=== PATIENT | female | born 1945 | race African-American/Black ===

== ENCOUNTER 2017-01-06 21:14 | Inpatient (IN) | payer MEDICARE, MEDICAID ==
[~2017-01-06] VITALS: Ht 188 cm; Wt 83.9 kg
[~2017-01-06 21:14] MED LIST: GLIP10TA11 PO
[2017-01-06 21:30] VITALS: BP 114/69
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
[2017-01-06] MEDS ORDERED: MAG HYDROX/AL HYDROX/SIMETH 30 ML UDC PO PRN (22:00)
[2017-01-06] MEDS ORDERED: MAGNESIUM HYDROXIDE 30 ML UDC PO PRN (22:00)
[2017-01-06] MEDS ORDERED: ACETAMINOPHEN 325 MG TABLET PO PRN (22:00)
[2017-01-06] MEDS ORDERED: NICOTINE PATCH (21MG) 21 MG PATCH.TD24 TD SCH (23:00)
[2017-01-06] MEDS ORDERED: DEXTROSE 50%-WATER 50 ML DISP.SYRIN IV PRN (23:00)
--- NOTE | 2017-01-06 23:18 | NUR ---
GPS RN NOTE, PATIENT REFUSED NICODERM 21MG PATCH TD DAILY AT THIS TIME. OFFERED NICODERM PATCH THREE TIMES AND STILL PATIENT REFUSED STATING, " GET THE HELL OUT OF HEAR I DON'T WON'T ANYTHING". EDUCATED THE RISKS AND BENEFITS OF USING AND REFUSING AFOREMENTIONED MEDICATION. WILL CONTINUE TO MONITOR THIS PATIENT.
[2017-01-07] MEDS: BLOOD SUGAR DIAGNOSTIC 1 EACH STRIP VI SCH ×4 (07:57→22:00)
--- NOTE | 2017-01-07 08:00 | NUR ---
GPS/RN PATIENT BS 143, REFUSED INSULIN 2 UNITS X 3, EXPLAINED RISKS AND BENEFITS, WILL CONTINUE TO ENCOURAGE TO ALLOW STIFF TO CHECK BS LEVELS AC/HS
--- NOTE | 2017-01-07 08:00 | NUR ---
GPS/RN PATIENT REFUSED A.M. MEDICATION, GLIPIZIDE 10MG, NICOTINE PATCH 21 MG X 3, EXPLAINED RISKS AND BENEFITS, WILL CONTINUE TO ENCOURAGE TO COMPLY WITH MD REGIMEN.
[2017-01-07] MEDS: clonazePAM 0.5 MG TABLET PO PRN ×2 (08:26→17:54)
--- NOTE | 2017-01-07 08:26 | NUR ---
GPA/RN PATIENT NOTED WITH ACUTE AGITATION, AGGRESSIVE, ANXIOUS AND AGITATED, ADMINISTERED KLONOPIN 0.5 MG ORDERED, WILL CONTINUE TO MONITOR.
--- NOTE | 2017-01-07 08:26 | NUR ---
Pt. is highly agitated, aggressive, throwing trays and combative to staffs. Pt. escorted to her room and redirected and offered with Shobha fabian. Called Dr. Ricardo and awaiting for the call back.
[2017-01-07] MEDS: NICOTINE PATCH (21MG) 21 MG PATCH.TD24 TD SCH (08:28)
[2017-01-07] MEDS: glipiZIDE 10 MG TABLET PO SCH ×2 (08:28→17:54)
--- NOTE | 2017-01-07 12:00 | NUR ---
GPS/RN PATIENT ADAMANTLY REFUSED BS CHECK X 3, EXPLAINED RISKS AND BENEFITS, WILL CONTINUE TO ENCOURAGE TO ALLOW STAFF MONITOR BS AC/S AND TO COMPLY WITH MD REGIMEN.
[2017-01-07 16:00] VITALS: BP 133/62
[2017-01-07] MEDS: DIVALPROEX SODIUM 500 MG TABLET.DR PO SCH ×2 (17:54→21:00)
--- NOTE | 2017-01-07 17:54 | NUR ---
GPA/RN PATIENT NOTED WITH ACUTE AGITATION, AGGRESSIVE, ANXIOUS AND AGITATED, ADMINISTERED KLONOPIN 0.5 MG ORDERED, WILL CONTINUE TO MONITOR.
[2017-01-07 20:00] VITALS: BP 113/51
[2017-01-07] MEDS: ARIPIPRAZOLE 5 MG TABLET PO SCH (22:00)
[2017-01-08] MEDS: BLOOD SUGAR DIAGNOSTIC 1 EACH STRIP VI SCH ×4 (07:30→21:25)
[2017-01-08] MEDS: DIVALPROEX SODIUM 500 MG TABLET.DR PO SCH ×3 (09:00→20:02)
[2017-01-08] MEDS: glipiZIDE 10 MG TABLET PO SCH ×3 (09:00→17:00)
[2017-01-08] MEDS: NICOTINE PATCH (21MG) 21 MG PATCH.TD24 TD SCH (09:00)
--- NOTE | 2017-01-08 11:02 | NUR ---
Initial Discharge Note: Per hold, patient is homeless. Patient will need placement. packing floor worker attempted to contact patient's daughter Carmen . However she was unavailable. packing floor worker left her a voicemail with her direct contact information. packing floor worker attempted to contact patient's daughter Valerie Paul , however it appeared to be a non-working number. packing floor worker will help form a safe and proper discharge.
--- NOTE | 2017-01-08 11:45 | NUR ---
GPS/RN PT AGREED TO TAKE 0900 MEDS AT THIS TIME.
[2017-01-08 12:02] LABS: BASOPHILS % (AUTO) 0.3 % (0.0-2.0); EOSINOPHILS # (AUTO) 0.2 /CMM (0.0-0.7); EOSINOPHILS % (AUTO) 2.2 % (0.0-6.0); HEMATOCRIT 37 % (33-45); HEMOGLOBIN 12.6 g/dL (11.5-14.8); LYMPHOCYTES # (AUTO) 3.9 /CMM (0.8-4.8); LYMPHOCYTES % (AUTO) 49.9 % (20.0-44.0); MEAN CORPUSCULAR HEMOGLOBIN 30 PG (26.0-33.0); MEAN CORPUSCULAR HGB CONC 34 g/dl (31.0-36.0); MEAN CORPUSCULAR VOLUME 89 fL (82-100); MONOCYTES # (AUTO) 0.8 /CMM (0.1-1.30); MONOCYTES % (AUTO) 10.5 % (2.0-12.0); NEUTROPHILS # (AUTO) 2.9 /CMM (1.8-8.9); NEUTROPHILS % (AUTO) 37.1 % (43.0-81.0); PLATELET COUNT (AUTO) 215 /CMM (150-450); RDW COEFFICIENT OF VARIATION 13.2 (11.5-15.0); RED BLOOD CELL COUNT(AUTO) 4.19 MIL/uL (4.0-5.2); WHITE BLOOD COUNT (AUTO) 7.8 K/uL (4.3-11.0)
[2017-01-08 12:17] LABS: CALCIUM, SERUM 9.1 mg/dL (8.5-10.1); CREATININE 0.8 mg/dL (0.6-1.3); POTASSIUM 3.9 mmol/L (3.5-5.1)
--- NOTE | 2017-01-08 19:20 | NUR ---
GPS/RN PT REFUSED ACCUCHECK @5953 OFFERED X3
[2017-01-08 20:00] VITALS: BP 119/52
[2017-01-08] MEDS: ARIPIPRAZOLE 5 MG TABLET PO SCH (21:04)
[2017-01-09] MEDS: BLOOD SUGAR DIAGNOSTIC 1 EACH STRIP VI SCH ×4 (07:30→22:47)
[2017-01-09] MEDS: NICOTINE PATCH (21MG) 21 MG PATCH.TD24 TD SCH (09:00)
[2017-01-09] MEDS: DIVALPROEX SODIUM 500 MG TABLET.DR PO SCH ×2 (09:00→22:47)
[2017-01-09] MEDS: glipiZIDE 10 MG TABLET PO SCH ×2 (09:00→17:00)
--- NOTE | 2017-01-09 09:07 | NUR ---
GPS/RN PT REFUSED ACCUCHECK IN AM , REFUSED NICOTINE PATCH. PT STATES : " I WANT CIGARETTE AND THE BEER.."
[2017-01-09 20:00] VITALS: BP 138/60
--- NOTE | 2017-01-09 21:00 | NUR ---
RN NOTES PATIENT RESTLESS, WANDERING THE HALLWAY, SCREAMING PROFANITIES TO STAFF, REDIRECTABLE, GIVEN FOOD. WILL CONTINUE TO MONITOR.
[2017-01-09] MEDS: ARIPIPRAZOLE 5 MG TABLET PO SCH (22:47)
[2017-01-09] MEDS: *INSULIN REGULAR(HUMULIN R)HUM 100 UNIT/ML VIAL SQ PRN (23:00)
--- NOTE | 2017-01-09 23:01 | NUR ---
RN NOTES INSULIN HELD, BG 108 MG/DL
[2017-01-09] MEDS: TEMAZEPAM 7.5 MG CAPSULE PO PRN (23:51)
--- NOTE | 2017-01-10 07:01 | NUR ---
RN NOTES PATIENT IS ALERT AND AWAKE, PACING THE HALLWAY, CONFUSED, TALKING TO SELF, EASILY IRRITATED, ABLE TO VERBALIZE NEEDS, REFUSED BLOOD DRAW.
[2017-01-10] MEDS: INSULIN REGULAR, HUMAN 100 UNIT/ML 3 ML VIAL SQ PRN (08:36)
[2017-01-10] MEDS: DIVALPROEX SODIUM 500 MG TABLET.DR PO SCH ×2 (08:37→21:00)
[2017-01-10] MEDS: BLOOD SUGAR DIAGNOSTIC 1 EACH STRIP VI SCH ×4 (08:37→22:00)
[2017-01-10] MEDS: glipiZIDE 10 MG TABLET PO SCH ×2 (08:40→17:11)
[2017-01-10] MEDS: NICOTINE PATCH (21MG) 21 MG PATCH.TD24 TD SCH (08:44)
[2017-01-10 19:50] VITALS: BP 144/84
[2017-01-10] MEDS: ARIPIPRAZOLE 5 MG TABLET PO SCH (22:00)
--- NOTE | 2017-01-11 06:05 | NUR ---
GPS RN: PATIENT REFUSED TO HAVE HER WEEKLY SKIN ASSESSMENT PICTURES DONE. PER PATIENT "ARE YOU NORA?" EXPLAINED TO PATIENT THE PURPOSE FOR THE PICTURE BUT SHE KEPT REFUSING. WILL ENDORSE TO DAY SHIFT NURSE.
[2017-01-11] MEDS: BLOOD SUGAR DIAGNOSTIC 1 EACH STRIP VI SCH ×4 (07:40→21:47)
[2017-01-11] MEDS: INSULIN REGULAR, HUMAN 100 UNIT/ML 3 ML VIAL SQ PRN (07:41)
[2017-01-11 08:04] VITALS: BP 132/62
[2017-01-11] MEDS: DIVALPROEX SODIUM 500 MG TABLET.DR PO SCH ×2 (08:39→21:47)
[2017-01-11] MEDS: glipiZIDE 10 MG TABLET PO SCH ×2 (08:39→16:32)
[2017-01-11] MEDS: NICOTINE PATCH (21MG) 21 MG PATCH.TD24 TD SCH (08:41)
[2017-01-11] MEDS ORDERED: OLANZAPINE 10 MG VIAL IM STA (11:33)
[2017-01-11] MEDS ORDERED: LORAZEPAM INJ 2 MG/ML VIAL IM STA (11:33)
--- NOTE | 2017-01-11 11:50 | NUR ---
GPS RN NOTE: PT IN THE DINNING ROOM PACING IN THE ROOM RESTLESS , AGITATED YELLING AND SCREAMING ,PT AGGRESSIVE TO STAFF UNABLE TO CONTROL BEHAVIOR. DR CRUZ NOTIFIED WITH ORDERS OF ATIVAN 1 MG IM ONCE,ZYPREXA 5 MG IM ONCE, ORDER PLACED AND CARED OUT WILL CONTINUE MONITORING
[2017-01-11 12:30] VITALS: BP 141/59
--- NOTE | 2017-01-11 13:15 | NUR ---
television maintenance worker attempted to contact patient's daughter Carmen Rene ([phone]) however, she was unavailable. television maintenance worker left her a detailed message with direct contact information. television maintenance worker will follow-up.
[2017-01-11 15:34] VITALS: BP 112/52
[2017-01-11 19:40] VITALS: BP 100/51
[2017-01-11] MEDS: ARIPIPRAZOLE 5 MG TABLET PO SCH (21:47)
--- NOTE | 2017-01-11 22:00 | NUR ---
GPS RN: PATIENT'S BLOOD SUGAR READING IS 189MG/DL. PATIENT REFUSED TO HAVE THE COVERAGE BE GIVEN. ADVISED PATIENT THE NEED TO HAVE THE COVERAGE. PATIENT STILL REFUSED. WILL CONTINUE TO MONITOR PATIENT. WILL ENDORSE TO DAY SHIFT NURSE.
[2017-01-12 08:18] VITALS: BP 141/81
[2017-01-12] MEDS: BLOOD SUGAR DIAGNOSTIC 1 EACH STRIP VI SCH ×4 (08:53→22:27)
[2017-01-12] MEDS: INSULIN REGULAR, HUMAN 100 UNIT/ML 3 ML VIAL SQ PRN (08:55)
[2017-01-12] MEDS: NICOTINE PATCH (21MG) 21 MG PATCH.TD24 TD SCH (09:00)
[2017-01-12] MEDS: DIVALPROEX SODIUM 500 MG TABLET.DR PO SCH ×2 (09:13→20:51)
[2017-01-12] MEDS: glipiZIDE 10 MG TABLET PO SCH ×2 (09:13→17:22)
[2017-01-12] MEDS: ARIPIPRAZOLE 5 MG TABLET PO SCH ×2 (09:13→20:51)
[2017-01-12] MEDS: clonazePAM 0.5 MG TABLET PO PRN (09:19)
--- NOTE | 2017-01-12 09:19 | NUR ---
RN NOTE:PATIENT AGITATED AND MEDICATED WITH KLONOPIN 0.5 MG.
[2017-01-12 15:59] VITALS: BP 140/59
--- NOTE | 2017-01-12 16:10 | NUR ---
SW spoke to patient regarding placement. Patient stated that she did not have a place to live. SW asked patient if she wanted placement, patient responded, "I want an [place] [facility]." SW asked patient if she wanted her to find her a board & Care, Patient responded "no, I want an [place] [facility]." Patient stated that she receives SSI 1,200/month. SW asked patient again if she wanted placement, patient responded, "no, I want an [place] [facility]." embroidery worker will follow-up.
[2017-01-12 20:00] VITALS: BP 131/65
[2017-01-12 20:25] VITALS: BP 131/65
[2017-01-12] MEDS: *INSULIN REGULAR(HUMULIN R)HUM 100 UNIT/ML VIAL SQ PRN (22:27)
--- NOTE | 2017-01-12 22:28 | NUR ---
RN NOTES: PATIENT ALLOWED FOR BLOOD SUGAR TO BE CHECKED. BS: 159 MG/DL. HOWEVER, PATIENT REFUSED TO HAVE INSULIN COVERAGE FOR TONIGHT, SAYING, "I WILL ONLY HAVE IT IF IT IS 200 OR OVER."
[2017-01-13] MEDS: BLOOD SUGAR DIAGNOSTIC 1 EACH STRIP VI SCH ×4 (07:30→21:40)
[2017-01-13 08:26] VITALS: BP 130/80
[2017-01-13] MEDS: ARIPIPRAZOLE 5 MG TABLET PO SCH ×2 (08:57→21:35)
[2017-01-13] MEDS: DIVALPROEX SODIUM 500 MG TABLET.DR PO SCH ×2 (08:57→21:33)
[2017-01-13] MEDS: glipiZIDE 10 MG TABLET PO SCH ×2 (08:57→17:00)
[2017-01-13] MEDS: NICOTINE PATCH (21MG) 21 MG PATCH.TD24 TD SCH (09:00)
[2017-01-13] MEDS: clonazePAM 0.5 MG TABLET PO PRN (10:39)
--- NOTE | 2017-01-13 10:40 | NUR ---
RN NOTE:PATIENT AGITATED AND MEDICATED WITH KLONOPIN 0.5 MG.
[2017-01-13] MEDS: INSULIN REGULAR, HUMAN 100 UNIT/ML 3 ML VIAL SQ PRN ×2 (10:55→13:19)
[2017-01-13 16:00] VITALS: BP 153/74
[2017-01-13 20:06] VITALS: BP 142/78
[2017-01-13] MEDS: TEMAZEPAM 7.5 MG CAPSULE PO PRN (21:33)
--- NOTE | 2017-01-13 22:00 | NUR ---
RN NOTES REFUSED TO CHECKED BS PT SAYS " SORRY, BUT I REFUSED THAT". RISKA ND BENEFITS EXPLAINED AND PT STARTED TO TALK CONTINUOUSLY, DISORGANIZED. NO S/S/ OF HYPO OR HYPERGLYCEMIA SHOWS. WILL CONTINUE TO MONITOR.
--- NOTE | 2017-01-13 22:46 | NUR ---
RN NOTES COMPLIANT WITH DUE MEDICINE BUT PT REFUSED TO TAKE SLEEPING PILL, ENCOURAGED AND TRIED 3X INEFFECTIVE RISK AND BENEFITS EXPLAINED. PT STILL WITH EPISODE OF KEEP COMING BACK AND FORTH TIME TO TIME IN NURSING STATION.
[2017-01-14] MEDS: BLOOD SUGAR DIAGNOSTIC 1 EACH STRIP VI SCH ×4 (07:30→21:20)
--- NOTE | 2017-01-14 07:30 | NUR ---
GPS/RN PATIENT REFUSED BS CHECK X 3, EXPLAINED RISKS AND BENEFITS, CONTINUES TO REFUSE, WILL CONTINUE TO ENCOURAGE TO COMPLY WITH MD REGIMEN.
[2017-01-14 08:55] VITALS: BP 117/69
[2017-01-14] MEDS: NICOTINE PATCH (21MG) 21 MG PATCH.TD24 TD SCH (09:00)
[2017-01-14] MEDS: ARIPIPRAZOLE 5 MG TABLET PO SCH ×2 (09:00→21:20)
[2017-01-14] MEDS: DIVALPROEX SODIUM 500 MG TABLET.DR PO SCH ×2 (09:01→21:19)
[2017-01-14] MEDS: glipiZIDE 10 MG TABLET PO SCH ×2 (09:01→16:24)
[2017-01-14] MEDS: clonazePAM 0.5 MG TABLET PO PRN ×2 (09:05→15:26)
--- NOTE | 2017-01-14 09:10 | NUR ---
GPA/RN PATIENT NOTED WITH ACUTE AGITATION, AGGRESSIVE, ANXIOUS AND AGITATED, ADMINISTERED KLONOPIN 0.5 MG ORDERED, WILL CONTINUE TO MONITOR.
--- NOTE | 2017-01-14 12:00 | NUR ---
GPS/RN PATIENT REFUSED BS CHECK X 3, EXPLAINED RISKS AND BENEFITS, CONTINUES TO REFUSE, WILL CONTINUE TO ENCOURAGE TO COMPLY WITH MD REGIMEN.
--- NOTE | 2017-01-14 15:26 | NUR ---
GPA/RN PATIENT AGITATED, VERBALLY AGGRESSIVE, AND ANXIOUS, ADMINISTERED KLONOPIN 0.5 MG ORDERED, WILL CONTINUE TO MONITOR.
[2017-01-14 16:28] VITALS: BP 145/80
--- NOTE | 2017-01-14 17:19 | NUR ---
GPS/RN PATIENT REFUSED BS CHECK X 3, EXPLAINED RISKS AND BENEFITS, CONTINUES TO REFUSE, WILL CONTINUE TO ENCOURAGE TO COMPLY WITH MD REGIMEN.
[2017-01-14] MEDS: *INSULIN REGULAR(HUMULIN R)HUM 100 UNIT/ML VIAL SQ PRN (21:21)
[2017-01-15] MEDS: BLOOD SUGAR DIAGNOSTIC 1 EACH STRIP VI SCH ×4 (07:55→21:42)
[2017-01-15] MEDS: INSULIN REGULAR, HUMAN 100 UNIT/ML 3 ML VIAL SQ PRN ×2 (07:57→17:51)
[2017-01-15 08:00] VITALS: BP 105/76
[2017-01-15] MEDS: ARIPIPRAZOLE 5 MG TABLET PO SCH (08:22)
[2017-01-15] MEDS: glipiZIDE 10 MG TABLET PO SCH ×2 (08:22→16:24)
[2017-01-15] MEDS: DIVALPROEX SODIUM 500 MG TABLET.DR PO SCH ×2 (08:22→21:42)
[2017-01-15] MEDS: NICOTINE PATCH (21MG) 21 MG PATCH.TD24 TD SCH ×2 (08:22→08:25)
[2017-01-15] MEDS ORDERED: OLANZAPINE 10 MG VIAL IM ONE (11:30)
[2017-01-15] MEDS ORDERED: LORAZEPAM INJ 2 MG/ML VIAL IM ONE (11:30)
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
[2017-01-15 16:00] VITALS: BP 122/63
[2017-01-15 20:00] VITALS: BP 124/64
--- NOTE | 2017-01-15 21:40 | NUR ---
GPS-RN PT REFUSED BLOOD SUGAR TO BE CHECK. EXPLAIN THE RISK AND BENEFITS. PT STILL REFUSED. WILL CONTINUE TO MONITOR FOR SAFETY.
[2017-01-15] MEDS: OLANZAPINE 5 MG/TAB.RAPDIS PO SCH (21:42)
[2017-01-16] MEDS: INSULIN REGULAR, HUMAN 100 UNIT/ML 3 ML VIAL SQ PRN ×3 (07:56→17:26)
[2017-01-16] MEDS: BLOOD SUGAR DIAGNOSTIC 1 EACH STRIP VI SCH ×4 (07:57→21:01)
[2017-01-16] MEDS: OLANZAPINE 5 MG/TAB.RAPDIS PO SCH ×3 (07:58→20:43)
[2017-01-16] MEDS: glipiZIDE 10 MG TABLET PO SCH ×2 (07:58→17:25)
[2017-01-16] MEDS: DIVALPROEX SODIUM 500 MG TABLET.DR PO SCH ×2 (07:58→20:43)
[2017-01-16 08:00] VITALS: BP 111/59
[2017-01-16] MEDS: NICOTINE PATCH (21MG) 21 MG PATCH.TD24 TD SCH (08:01)
[2017-01-16 09:31] LABS: BASOPHILS % (AUTO) 0.3 % (0.0-2.0); EOSINOPHILS # (AUTO) 0.1 /CMM (0.0-0.7); EOSINOPHILS % (AUTO) 0.8 % (0.0-6.0); HEMATOCRIT 36 % (33-45); HEMOGLOBIN 11.9 g/dL (11.5-14.8); LYMPHOCYTES # (AUTO) 3.9 /CMM (0.8-4.8); LYMPHOCYTES % (AUTO) 37.3 % (20.0-44.0); MEAN CORPUSCULAR HEMOGLOBIN 30 PG (26.0-33.0); MEAN CORPUSCULAR HGB CONC 33 g/dl (31.0-36.0); MEAN CORPUSCULAR VOLUME 90 fL (82-100); MONOCYTES # (AUTO) 0.9 /CMM (0.1-1.30); MONOCYTES % (AUTO) 8.6 % (2.0-12.0); NEUTROPHILS # (AUTO) 5.5 /CMM (1.8-8.9); PLATELET COUNT (AUTO) 257 /CMM (150-450); RDW COEFFICIENT OF VARIATION 13.2 (11.5-15.0); RED BLOOD CELL COUNT(AUTO) 4.02 MIL/uL (4.0-5.2); WHITE BLOOD COUNT (AUTO) 10.4 K/uL (4.3-11.0)
[2017-01-16 09:46] LABS: CALCIUM, SERUM 9.3 mg/dL (8.5-10.1); CREATININE 0.8 mg/dL (0.6-1.3); POTASSIUM 4.5 mmol/L (3.5-5.1)
[2017-01-16 16:00] VITALS: BP 123/69
[2017-01-16 20:00] VITALS: BP 130/56
[2017-01-16] MEDS: *INSULIN REGULAR(HUMULIN R)HUM 100 UNIT/ML VIAL SQ PRN (21:02)
[2017-01-17] MEDS: DIVALPROEX SODIUM 500 MG TABLET.DR PO SCH ×2 (08:15→21:40)
[2017-01-17] MEDS: glipiZIDE 10 MG TABLET PO SCH ×2 (08:16→16:28)
[2017-01-17] MEDS: BLOOD SUGAR DIAGNOSTIC 1 EACH STRIP VI SCH ×4 (08:16→21:41)
[2017-01-17] MEDS: OLANZAPINE 5 MG/TAB.RAPDIS PO SCH ×3 (08:16→21:40)
[2017-01-17] MEDS: NICOTINE PATCH (21MG) 21 MG PATCH.TD24 TD SCH (08:16)
[2017-01-17] MEDS: INSULIN REGULAR, HUMAN 100 UNIT/ML 3 ML VIAL SQ PRN (08:41)
--- NOTE | 2017-01-17 08:41 | NUR ---
[id number]: BLOOD SUGAR IS 233 MG/DL AND GAVE 6 UNITS OF REGULAR INSULIN.
[2017-01-17 22:54] VITALS: BP 132/52
[2017-01-18] MEDS: BLOOD SUGAR DIAGNOSTIC 1 EACH STRIP VI SCH ×5 (07:30→22:00)
[2017-01-18 08:00] VITALS: BP 157/62
--- NOTE | 2017-01-18 08:11 | NUR ---
GPS RN NOTES PATIENT REFUSING ACCU CHECK STATES SHE KNOWS IT IS NOT TOO HIGH. PATIENT IS PLEASANT HOWEVER WILL NOT LISTEN TO INSTRUCTIONS AND EDUCATION
[2017-01-18] MEDS: DIVALPROEX SODIUM 500 MG TABLET.DR PO SCH ×2 (08:29→21:29)
[2017-01-18] MEDS: glipiZIDE 10 MG TABLET PO SCH ×2 (08:29→16:27)
--- NOTE | 2017-01-18 08:30 | NUR ---
GPS RN NOTES PATIENT REFUSED ZYPREXA AND NICODERM PATCH. WILL ATTEMPT AGAIN. EDUCATED PATIENT HOWEVER SHE IS PASSIVE AND BECOMING ANGRY.
[2017-01-18] MEDS: NICOTINE PATCH (21MG) 21 MG PATCH.TD24 TD SCH (09:00)
[2017-01-18] MEDS: OLANZAPINE 5 MG/TAB.RAPDIS PO SCH ×3 (09:07→21:30)
--- NOTE | 2017-01-18 15:52 | NUR ---
SW spoke to patient regarding placement. Patient agreed to go to a Board & Care. sheet metal worker helper will follow-up.
[2017-01-18 16:00] VITALS: BP 154/69
[2017-01-18 16:18] VITALS: BP 124/69
--- NOTE | 2017-01-18 16:22 | NUR ---
KILO faxed [facility] ([phone]). insemination worker will follow-up.
--- NOTE | 2017-01-18 16:24 | NUR ---
tangled yarn worker faxed initial referral packet to [facility] ([phone]). tangled yarn worker will follow-up.
[2017-01-18 20:01] VITALS: BP_SYST 116; BP_SYST 164; BP_DIAS 49
[2017-01-19] MEDS: BLOOD SUGAR DIAGNOSTIC 1 EACH STRIP VI SCH ×5 (00:35→21:43)
[2017-01-19] MEDS: *INSULIN REGULAR(HUMULIN R)HUM 100 UNIT/ML VIAL SQ PRN ×2 (00:39→21:52)
[2017-01-19] MEDS: INSULIN REGULAR, HUMAN 100 UNIT/ML 3 ML VIAL SQ PRN ×2 (07:46→12:16)
[2017-01-19] MEDS: NICOTINE PATCH (21MG) 21 MG PATCH.TD24 TD SCH (07:48)
[2017-01-19 08:00] VITALS: BP 142/91
[2017-01-19] MEDS: DIVALPROEX SODIUM 500 MG TABLET.DR PO SCH ×2 (08:00→21:42)
[2017-01-19] MEDS: glipiZIDE 10 MG TABLET PO SCH ×2 (08:00→17:18)
[2017-01-19] MEDS: OLANZAPINE 5 MG/TAB.RAPDIS PO SCH ×4 (08:01→22:00)
[2017-01-19] MEDS: clonazePAM 0.5 MG TABLET PO PRN ×2 (08:01→17:18)
--- NOTE | 2017-01-19 08:01 | NUR ---
RN NOTES ADMINISTERED KLONOPIN 0.5 MG PO PRN FOR ANXIETY, PARANOIA, YELLING, SCREAMING, VERBALLY ABUSIVE, V/S TAKEN 142/91, P-68, CONTINUED MONITORING.
--- NOTE | 2017-01-19 14:58 | NUR ---
Per Angela, from [place] ([phone]) she cannot accept the patient.
--- NOTE | 2017-01-19 14:59 | NUR ---
torpedo worker faxed initial review packet to [address] [place] [address] ( / ) torpedo worker will follow-up.
[2017-01-19 15:37] VITALS: BP 135/72
--- NOTE | 2017-01-19 17:18 | NUR ---
RN NOTES ADMINISTERED KLONOPIN 0.5 MG PO PRN, FOR ANXIETY,PARANOIA, IRRITABLE, VERBALLY ABUSIVE, V/S TAKEN BP -135/72, P-64, SAFETY PRECAUTION MAINTAINED ALL THE TIME. CONTINUED MONITORING.
[2017-01-19] MEDS: METFORMIN 500 MG TABLET PO SCH (17:43)
[2017-01-19 19:56] VITALS: BP 147/65
[2017-01-19] MEDS: ARIPIPRAZOLE 5 MG TABLET PO SCH (21:41)
[2017-01-20] MEDS: BLOOD SUGAR DIAGNOSTIC 1 EACH STRIP VI SCH ×4 (07:30→21:41)
--- NOTE | 2017-01-20 07:30 | NUR ---
GPS/RN PATIENT REFUSED BS CHECK X 3, EXPLAINED RISKS AND BENEFITS, CONTINUES TO REFUSE, WILL CONTINUE TO ENCOURAGE TO COMPLY WITH MD REGIMEN.
[2017-01-20] MEDS: OLANZAPINE 5 MG/TAB.RAPDIS PO SCH ×3 (08:26→21:36)
[2017-01-20] MEDS: DIVALPROEX SODIUM 500 MG TABLET.DR PO SCH ×2 (08:26→21:33)
[2017-01-20] MEDS: glipiZIDE 10 MG TABLET PO SCH ×2 (08:26→16:17)
[2017-01-20] MEDS: NICOTINE PATCH (21MG) 21 MG PATCH.TD24 TD SCH (08:26)
[2017-01-20] MEDS: METFORMIN 500 MG TABLET PO SCH ×2 (08:26→16:17)
[2017-01-20 10:12] LABS: CHOLESTEROL 167 mg/dL (<200); HDL CHOLESTEROL 66 mg/dL (40-60); LDL 83 mg/dL (0-99); TRIGLYCERIDES 132 mg/dL (30-150)
--- NOTE | 2017-01-20 12:00 | NUR ---
GPS/RN PATIENT REFUSED BS CHECK X 3, EXPLAINED RISKS AND BENEFITS, CONTINUES TO REFUSE, WILL CONTINUE TO ENCOURAGE TO COMPLY WITH MD REGIMEN.
--- NOTE | 2017-01-20 16:50 | NUR ---
GPS/RN PATIENT REFUSED BS CHECK X 3, STATED "I JUST ATE SOMETHING AND IT WILL BE HIGH", WILL CONTINUE TO ENCOURAGE TO ALLOW STAFF TO CHECK BS DURING SCHEDULED INTERVALS.
[2017-01-20 20:00] VITALS: BP 122/57
[2017-01-20] MEDS: ARIPIPRAZOLE 5 MG TABLET PO SCH (21:33)
--- NOTE | 2017-01-20 21:40 | NUR ---
GPS/BOILER/CHILLER OPERATOR NOTES: PT. REFUSED HS OLANZAPINE 10MG PO ORDERED. OFFERED 3X. EXPLAINED RISK AND BENEFITS. PT. STILL REFUSED.
[2017-01-21] MEDS: BLOOD SUGAR DIAGNOSTIC 1 EACH STRIP VI SCH ×4 (07:58→22:55)
[2017-01-21 08:00] VITALS: BP 122/54
[2017-01-21] MEDS: DIVALPROEX SODIUM 500 MG TABLET.DR PO SCH ×2 (08:18→20:48)
[2017-01-21] MEDS: glipiZIDE 10 MG TABLET PO SCH ×2 (08:18→16:13)
[2017-01-21] MEDS: METFORMIN 500 MG TABLET PO SCH ×2 (08:18→16:13)
--- NOTE | 2017-01-21 08:30 | NUR ---
GPS/RN BS 170, REFUSED 3 UNITS REGULAR INSULIN X3, EXPLAINED RISKS AND BENEFITS, CONTINUES TO REFUSE. STATED" NO, THAT'S NOT HIGH, I DON'T NEED IT"
[2017-01-21] MEDS: OLANZAPINE 5 MG/TAB.RAPDIS PO SCH ×2 (08:34→22:55)
[2017-01-21] MEDS: NICOTINE PATCH (21MG) 21 MG PATCH.TD24 TD SCH (08:35)
--- NOTE | 2017-01-21 12:00 | NUR ---
GPS/RN BS 108, NO COVERAGE GIVEN.
[2017-01-21 15:54] VITALS: BP 130/99
--- NOTE | 2017-01-21 17:30 | NUR ---
GPS/RN BS 110, NO COVERAGE GIVEN.
[2017-01-21 20:00] VITALS: BP 115/53
--- NOTE | 2017-01-21 21:40 | NUR ---
GPS/RN NOTE: ACCUCHECK 109 MG/DL, NO INSULIN DUE AT THIS TIME.
[2017-01-21] MEDS: ARIPIPRAZOLE 5 MG TABLET PO SCH (22:54)
[2017-01-22 08:00] VITALS: BP 108/59
[2017-01-22] MEDS: BLOOD SUGAR DIAGNOSTIC 1 EACH STRIP VI SCH ×4 (10:52→21:48)
[2017-01-22] MEDS: METFORMIN 500 MG TABLET PO SCH ×2 (10:53→17:52)
[2017-01-22] MEDS: DIVALPROEX SODIUM 500 MG TABLET.DR PO SCH ×2 (10:53→21:12)
[2017-01-22] MEDS: NICOTINE PATCH (21MG) 21 MG PATCH.TD24 TD SCH (10:53)
[2017-01-22] MEDS: OLANZAPINE 5 MG/TAB.RAPDIS PO SCH ×2 (10:53→22:01)
[2017-01-22] MEDS: glipiZIDE 10 MG TABLET PO SCH ×2 (10:53→17:52)
--- NOTE | 2017-01-22 12:00 | NUR ---
ms rn patient bs -196 - refused coverage, no s/s of hyperglycemia noted.
[2017-01-22 16:00] VITALS: BP 127/63
--- NOTE | 2017-01-22 17:30 | NUR ---
ms rn bs - 136 - refused to take coverage, pt stated that she only take insulin if starts w/ 200 blood sugar.
[2017-01-22 20:00] VITALS: BP 127/57
--- NOTE | 2017-01-22 20:06 | NUR ---
GPS/RN NOTE: PATIENT UP AT THE DINING AREA. PATIENT IS SITTING QUIETLY, CALM, QUIET. NO APPARENT DISTRESS NOTED.
--- NOTE | 2017-01-22 21:49 | NUR ---
GPS/RN NOTE: ACCUCHECK 117 MG/DL, NO INSULIN DUE AT THIS TIME. SANDWICH GIVEN.
[2017-01-22] MEDS: ARIPIPRAZOLE 5 MG TABLET PO SCH (22:01)
[2017-01-23] MEDS: BLOOD SUGAR DIAGNOSTIC 1 EACH STRIP VI SCH ×4 (07:47→22:04)
[2017-01-23 08:00] VITALS: BP 131/71
[2017-01-23] MEDS: INSULIN REGULAR, HUMAN 100 UNIT/ML 3 ML VIAL SQ PRN ×2 (08:05→22:05)
--- NOTE | 2017-01-23 08:07 | NUR ---
PLANT HEALTH MANAGER-NOTES PATIENT BLOOD SUGAR WAS 264 MG/DL, 9 UNITS OF R INSULIN GIVEN ORDERED.
[2017-01-23] MEDS: OLANZAPINE 5 MG/TAB.RAPDIS PO SCH ×3 (08:30→21:07)
[2017-01-23] MEDS: DIVALPROEX SODIUM 500 MG TABLET.DR PO SCH ×2 (08:30→20:59)
[2017-01-23] MEDS: glipiZIDE 10 MG TABLET PO SCH ×2 (08:30→17:11)
[2017-01-23] MEDS: METFORMIN 500 MG TABLET PO SCH ×2 (08:30→17:11)
[2017-01-23] MEDS: NICOTINE PATCH (21MG) 21 MG PATCH.TD24 TD SCH ×2 (08:30→09:00)
--- NOTE | 2017-01-23 08:39 | NUR ---
HUMIDIFIER OPERATOR-NOTES PATIENT REFUSED ZYPREXA ZYDIS 10 MG. P.O AND NICOTINE PATCH STATED" THOSE ARE ARSENIC AND POISONS". EXPLAINED RISK AND BENEFITS BUT PATIENT GETS ANGRY AND ARGUMENTATIVE. OFFERED X3.
--- NOTE | 2017-01-23 12:39 | NUR ---
DENTAL THERAPIST-NOTES PATIENT BLOOD SUGAR WAS 118MG/DL,NO COVERAGE GIVEN.
[2017-01-23 16:06] VITALS: BP 112/59
--- NOTE | 2017-01-23 17:21 | NUR ---
LINE UP MACHINE OPERATOR-NOTES PATIENT BLOOD SUGAR WAS 155 MG/DL,REFUSED 3 UNITS INSULIN COVERAGE DESPITE EXPLANATIONS RISK AND BENEFITS. PATIENT GETS ANGRY AND ARGUMENTATIVE .STATED " I ONLY TAKE INSULIN IF MY BLOOD SUGAR IS OVER 200". OFFERED X3
[2017-01-23 20:00] VITALS: BP 141/68
[2017-01-23] MEDS: ARIPIPRAZOLE 5 MG TABLET PO SCH (21:05)
--- NOTE | 2017-01-23 22:00 | NUR ---
RN GPS NOTES , AT 2200 PT. BS 164 REFUSED COVERAGE, ENCOURGED FOR MEDS, EXPLAINED RISKS AND BENEFITS , STILL REFUSED , WILL CONTINUE ENCOURAGED TO COMPLY WITH MD REGIMEN
[2017-01-24 08:00] VITALS: BP 152/63
[2017-01-24] MEDS: BLOOD SUGAR DIAGNOSTIC 1 EACH STRIP VI SCH ×4 (08:07→22:17)
[2017-01-24] MEDS: OLANZAPINE 5 MG/TAB.RAPDIS PO SCH ×2 (08:07→21:33)
[2017-01-24] MEDS: DIVALPROEX SODIUM 500 MG TABLET.DR PO SCH ×2 (08:07→21:24)
[2017-01-24] MEDS: glipiZIDE 10 MG TABLET PO SCH ×2 (08:07→16:47)
[2017-01-24] MEDS: METFORMIN 500 MG TABLET PO SCH ×2 (08:07→16:47)
[2017-01-24] MEDS: NICOTINE PATCH (21MG) 21 MG PATCH.TD24 TD SCH (08:07)
[2017-01-24] MEDS: INSULIN REGULAR, HUMAN 100 UNIT/ML 3 ML VIAL SQ PRN ×2 (08:10→16:49)
--- NOTE | 2017-01-24 08:10 | NUR ---
[id number]: BLOOD SUGAR IS 170 MG/DL AND GAVE 3 UNITS OF REGULAR INSULIN
--- NOTE | 2017-01-24 11:42 | NUR ---
[id number]: BLOOD SUGAR IS 85 MG/DL AND GAVE 0 UNITS OF REGULAR INSULIN
[2017-01-24 15:17] VITALS: BP 116/59
--- NOTE | 2017-01-24 16:32 | NUR ---
[id number]: BLOOD SUGAR IS 131 MG/DL AND GAVE 2 UNITS OF REGULAR INSULIN
[2017-01-24 20:07] VITALS: BP 116/56
[2017-01-24] MEDS: ARIPIPRAZOLE 5 MG TABLET PO SCH (21:33)
[2017-01-24] MEDS: *INSULIN REGULAR(HUMULIN R)HUM 100 UNIT/ML VIAL SQ PRN (22:19)
[2017-01-24 23:00] VITALS: BP 110/64
[2017-01-25 06:53] LABS: CALCIUM, SERUM 9.5 mg/dL (8.5-10.1); CREATININE 0.8 mg/dL (0.6-1.3); MAGNESIUM 1.9 mg/dL (1.8-2.4); PHOSPHORUS 3.7 mg/dL (2.5-4.9); POTASSIUM 4.4 mmol/L (3.5-5.1)
[2017-01-25] MEDS: BLOOD SUGAR DIAGNOSTIC 1 EACH STRIP VI SCH ×4 (07:38→22:25)
[2017-01-25] MEDS: INSULIN REGULAR, HUMAN 100 UNIT/ML 3 ML VIAL SQ PRN (07:41)
--- NOTE | 2017-01-25 07:41 | NUR ---
[id number]: BLOOD SUGAR IS 189 MG/DL AND GAVE 3 UNIT REGULAR INSULIN
[2017-01-25 08:00] VITALS: BP 123/61
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
[2017-01-25] MEDS: DIVALPROEX SODIUM 500 MG TABLET.DR PO SCH ×2 (08:31→16:35)
[2017-01-25] MEDS: glipiZIDE 10 MG TABLET PO SCH ×2 (08:31→16:35)
[2017-01-25] MEDS: NICOTINE PATCH (21MG) 21 MG PATCH.TD24 TD SCH (08:31)
[2017-01-25] MEDS: METFORMIN 500 MG TABLET PO SCH ×2 (08:31→16:35)
[2017-01-25] MEDS: OLANZAPINE 5 MG/TAB.RAPDIS PO SCH ×2 (08:31→22:05)
--- NOTE | 2017-01-25 11:59 | NUR ---
[id number]: BLOOD SUGAR IS 87 MG/DL AND NO INSULIN COVERAGE REQUIRE AT THIS TIME
--- NOTE | 2017-01-25 12:39 | NUR ---
general foundry worker faxed updated progress notes to [address] [place] [address] ( / ) general foundry worker will follow-up.
[2017-01-25 16:26] VITALS: BP 129/64
--- NOTE | 2017-01-25 16:41 | NUR ---
[id number]: BLOOD SUGAR IS 121 MG/DL AND GAVE NO INSULIN REQUIRED AT THIS TIME
[2017-01-25 20:34] VITALS: BP 137/64
[2017-01-25] MEDS: ARIPIPRAZOLE 5 MG TABLET PO SCH (22:05)
[2017-01-25] MEDS: *INSULIN REGULAR(HUMULIN R)HUM 100 UNIT/ML VIAL SQ PRN (22:28)
[2017-01-26 08:00] VITALS: BP 136/70
[2017-01-26] MEDS: BLOOD SUGAR DIAGNOSTIC 1 EACH STRIP VI SCH ×2 (08:58→12:27)
[2017-01-26] MEDS: NICOTINE PATCH (21MG) 21 MG PATCH.TD24 TD SCH (08:59)
[2017-01-26] MEDS: METFORMIN 500 MG TABLET PO SCH (08:59)
[2017-01-26] MEDS: glipiZIDE 10 MG TABLET PO SCH (08:59)
[2017-01-26] MEDS: OLANZAPINE 5 MG/TAB.RAPDIS PO SCH ×2 (08:59→09:00)
[2017-01-26] MEDS: DIVALPROEX SODIUM 500 MG TABLET.DR PO SCH (08:59)
--- NOTE | 2017-01-26 08:59 | NUR ---
[id number]: PT REFUSED TO TAKE ZYPREXA ZYDIS AND INFORMED DR. CRUZ AND DR. CRUZ AGREED WITH PT'S DISCHARGE.
[2017-01-26] MEDS: INSULIN REGULAR, HUMAN 100 UNIT/ML 3 ML VIAL SQ PRN ×2 (09:18→12:44)
--- NOTE | 2017-01-26 09:18 | NUR ---
[id number]: BLOOD SUGAR IS 143 MG/DL AND GAVE 2 UNITS OF REGULAR INSULIN
--- NOTE | 2017-01-26 12:44 | NUR ---
[id number]: BLOOD SUGAR IS 157 MG/DL AND GAVE 2 UNITS OF REGULAR INSULIN
--- NOTE | 2017-01-26 13:15 | NUR ---
[id number]: PT IS 71 YEARS OLD FEMALE DISCHARGE TO [facility] AT [address] [facility]. [id number]. COMPLAINT WITH MEDICATIONS AND COOPERATIVE WITH TREATMENT PLANS. PT DENIES SI/HI. BEHAVIOR IMPROVED, PSYCHIATRIC TX PLANS MET, MEDICAL TX PLANS DEFERRED FOR CONTINUAL MONITORING. EDUCATED PT ABOUT AFTER CARE PLAN AND COPY PROVIDED. RETURNED PERSONAL BELONGINGS TO PT. MEDICATIONS RECONCILED WITH DR. WILHELM AND . REPORT GIVEN TO RODO AT [facility] FOR CONTINUITY OF CARE. PT IS SELECTIVE TO SIGNING DISCHARGE PAPERWORK. PT REFUSED SKIN ASSESSMENT. PT LEFT THE UNIT ACCOMPANIED BY AMBULANCE STAFF.
--- NOTE | 2017-01-26 14:38 | NUR ---
Discharge Note: Patient was discharged to [facility] ([phone]) [address] [facility] [place] [address]. Via med response. general foundry worker attempted to contact patients daughter Carmen several times, however, she was unavailable. Patient was agreeable with the discharge plan. Patient's mood and affect were appropriate upon discharge. Patient denied suicidal and homicidal ideations. Patient will follow-up with psychiatrist Dr. Shukla at the facility. Facilitated info to IDT team who are in agreement with discharge arrangement. The multidisciplinary exitcare form was done, printed, signed, and given to the patient.
== END 2017-01-26 13:15 | DRG 885 ==
LOC: GPS 21:14
PROVIDERS: ADMIT Psychiatry & Neurology Psychiatry; ATTEND Internal Medicine
DX: F25.9 Schizoaffective disorder, unspecified (principal); E11.9 Type 2 diabetes mellitus without complications; F41.9 Anxiety disorder, unspecified; F17.200 Nicotine dependence, unspecified, uncomplicated; F32.9 Major depressive disorder, single episode, unspecified; K21.9 Gastro-esophageal reflux disease without esophagitis; Z59.0 Homelessness; Z79.899 Other long term (current) drug therapy; Z73.6 Limitation of activities due to disability; Z79.84 Long term (current) use of oral hypoglycemic drugs
CPT/HCPCS: 36415; 80048-TC; 80061-TC; 80164-TC; 82962-TC; 83735-TC; 84100-TC; 85025-TC; 87081-TC; J1815; J2060; J3490

== ENCOUNTER 2018-11-10 19:46 | Inpatient (IN) | payer MEDICARE ==
[~2018-11-10] VITALS: Ht 175.3 cm; Wt 90.7 kg
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
[2018-11-10 21:45] VITALS: BP 146/67
[2018-11-10] MEDS ORDERED: ACETAMINOPHEN 325 MG TABLET PO PRN (22:00)
[2018-11-10] MEDS ORDERED: MAGNESIUM HYDROXIDE 30 ML UDC PO PRN (22:00)
[2018-11-10] MEDS ORDERED: clonazePAM 0.5 MG TABLET PO PRN (22:00)
[2018-11-10] MEDS ORDERED: BLOOD SUGAR DIAGNOSTIC 1 EACH STRIP IN ONE (22:00)
[2018-11-10] MEDS ORDERED: MAG HYDROX/AL HYDROX/SIMETH 30 ML UDC PO PRN (22:00)
--- NOTE | 2018-11-10 22:39 | NUR ---
PATIENT ARRIVED AT 2130. DAUGHTER BLANCA [phone] NOTIFIED ABOUT ADMISSION AT 2150.
[2018-11-11] MEDS ORDERED: [UNRECOGNIZED DRUG - CODE] SUBCUT (02:04)
[2018-11-11] MEDS ORDERED: NICO-677 TP (02:04)
[2018-11-11] MEDS ORDERED: INSU100V7 SQ (02:04)
[2018-11-11] MEDS ORDERED: INSU100V39 SQ (02:04)
[2018-11-11] MEDS ORDERED: MAGN400T6 PO (02:04)
--- NOTE | 2018-11-11 02:17 | NUR ---
Paged and spoke with PRINCIPAL MECHANICAL ENGINEER Rahel Grover: Med Reconciliation for patient.
[2018-11-11 07:47] LABS: ALANINE AMINOTRANSFERASE 46 U/L (12-78); ALBUMIN 2.8 g/dL (3.4-5.0); ALKALINE PHOSPHATASE 96 U/L (46-116); ASPARTATE AMINOTRANSFERASE 23 U/L (15-37); BILIRUBIN,TOTAL 0.3 mg/dL (0.2-1.0); CALCIUM, SERUM 8.7 mg/dL (8.5-10.1); CARBON DIOXIDE 24 mmol/L (21-32); CHLORIDE 107 mmol/L (98-107); GLUCOSE 120 mg/dL (74-106); SODIUM SERUM 141 mmol/L (136-145); TOTAL PROTEIN, SERUM 6.4 g/dL (6.4-8.2); UREA NITROGEN, BLOOD 16 mg/dL (7-18)
[2018-11-11 08:00] VITALS: BP 122/68
[2018-11-11 09:44] LABS: CHOLESTEROL 206 mg/dL (<200); HDL CHOLESTEROL 69 mg/dL (40-60); LDL 105 mg/dL (0-99); TRIGLYCERIDES 153 mg/dL (30-150)
[2018-11-11] MEDS ORDERED: DEXTROSE 50%-WATER 50 ML DISP.SYRIN IV PRN (10:00)
--- NOTE | 2018-11-11 11:16 | NUR ---
Initial Discharge Plan: Pt resided at [facility] located at [address] [place] [id number]; but the pt left against medical advice in September 2018. Per pt, she would like to return there or be placed in a alf in the [facility]. KILO will work with the pt and the MD regarding appropriate discharge planning. SW will form a safe and proper discharge.
--- NOTE | 2018-11-11 11:18 | NUR ---
KILO called [facility] and spoke to Nadira who stated that the pt left their facility against medical advice around September 2018. She stated that she is currently full and will not be able to accommodate this pt.
[2018-11-11] MEDS: BLOOD SUGAR DIAGNOSTIC 1 EACH STRIP VI SCH ×3 (11:36→21:46)
[2018-11-11] MEDS: INSULIN ASPART/LISPRO 100 UNIT/ML CARTRIDGE SQ SCH ×2 (12:26→17:29)
[2018-11-11] MEDS: INSULIN REGULAR, HUMAN 100 UNIT/ML 3 ML VIAL SQ PRN (12:27)
--- NOTE | 2018-11-11 12:35 | NUR ---
SW called the pts daughter, Carmen ([phone]), and left a voicemail that informed her that the SW would like to discuss the pts treatment.
[2018-11-11] MEDS: DIVALPROEX SODIUM 500 MG TABLET.DR PO SCH ×2 (14:05→21:42)
[2018-11-11] MEDS: risperiDONE 1 MG TABLET PO SCH ×2 (14:05→16:43)
--- NOTE | 2018-11-11 14:53 | NUR ---
GROUP NOTE: Pt was encouraged to participate in group therapy discussing "discharge planning" but pt stated she just wanted to walk around instead. SW attempted to do individual intervention but pt refused.
[2018-11-11 16:00] VITALS: BP 111/56
[2018-11-11] MEDS: MAGNESIUM OXIDE 400 MG TABLET PO SCH (16:42)
[2018-11-11 20:00] VITALS: BP 109/55
[2018-11-11] MEDS: TEMAZEPAM 7.5 MG CAPSULE PO PRN (21:42)
[2018-11-11] MEDS: *INSULIN REGULAR(HUMULIN R)HUM 100 UNIT/ML VIAL SQ PRN (21:48)
[2018-11-12 08:00] VITALS: BP 136/72
[2018-11-12] MEDS: BLOOD SUGAR DIAGNOSTIC 1 EACH STRIP VI SCH ×4 (08:01→21:30)
[2018-11-12] MEDS: INSULIN ASPART/LISPRO 100 UNIT/ML CARTRIDGE SQ SCH ×3 (08:02→17:38)
[2018-11-12] MEDS: risperiDONE 1 MG TABLET PO SCH ×2 (08:05→16:57)
[2018-11-12] MEDS: MAGNESIUM OXIDE 400 MG TABLET PO SCH ×2 (08:05→16:57)
[2018-11-12] MEDS: DIVALPROEX SODIUM 500 MG TABLET.DR PO SCH ×2 (08:05→21:30)
[2018-11-12] MEDS: INSULIN REGULAR, HUMAN 100 UNIT/ML 3 ML VIAL SQ PRN ×3 (08:14→17:37)
[2018-11-12] MEDS: INSULIN GLARGINE, 100 UNIT/ML CARTRIDGE SQ SCH (09:35)
--- NOTE | 2018-11-12 11:30 | NUR ---
GPS RN NOTE ACCU CHECK 60. PT STATES "I FEEL FINE, JUST HUNGRY". PROVIDED WITH 2 APPLE JUICE BOXES AND GRAM CRACKERS, WILL CONTINUE TO MONITOR.
--- NOTE | 2018-11-12 11:48 | NUR ---
GPS RN NOTE PT TALKING ON PHONE WITH DAUGHTER, ATE GRAM CRACKERS AND DRANK 2 APPLE JUICE BOXES, REFUSING SUGAR RE CHECK THIS TIME.
--- NOTE | 2018-11-12 12:00 | NUR ---
GPS RN NOTE BLOOD SUGAR RECHECK OF 113. PT PROVIDED WITH LUNCH TRAY.
[2018-11-12 16:02] VITALS: BP 112/61
[2018-11-12 20:00] VITALS: BP 108/67
[2018-11-12] MEDS: TEMAZEPAM 7.5 MG CAPSULE PO PRN (21:30)
[2018-11-12] MEDS: *INSULIN REGULAR(HUMULIN R)HUM 100 UNIT/ML VIAL SQ PRN (21:32)
[2018-11-13] MEDS: BLOOD SUGAR DIAGNOSTIC 1 EACH STRIP VI SCH ×4 (07:41→21:32)
[2018-11-13] MEDS: INSULIN REGULAR, HUMAN 100 UNIT/ML 3 ML VIAL SQ PRN ×3 (07:43→17:31)
[2018-11-13] MEDS: INSULIN ASPART/LISPRO 100 UNIT/ML CARTRIDGE SQ SCH ×3 (07:44→17:32)
[2018-11-13 08:00] VITALS: BP 122/57
[2018-11-13] MEDS: DIVALPROEX SODIUM 500 MG TABLET.DR PO SCH ×2 (08:17→21:03)
[2018-11-13] MEDS: risperiDONE 1 MG TABLET PO SCH ×2 (08:17→16:37)
[2018-11-13] MEDS: MAGNESIUM OXIDE 400 MG TABLET PO SCH ×2 (08:17→16:37)
[2018-11-13] MEDS: INSULIN GLARGINE, 100 UNIT/ML CARTRIDGE SQ SCH (09:08)
[2018-11-13 16:00] VITALS: BP 97/50
[2018-11-13 20:06] VITALS: BP 105/65
[2018-11-13 20:41] VITALS: BP 105/63
[2018-11-13] MEDS: *INSULIN REGULAR(HUMULIN R)HUM 100 UNIT/ML VIAL SQ PRN (21:37)
[2018-11-14 08:00] VITALS: BP 139/98
[2018-11-14] MEDS: INSULIN ASPART/LISPRO 100 UNIT/ML CARTRIDGE SQ SCH (08:00)
[2018-11-14] MEDS: BLOOD SUGAR DIAGNOSTIC 1 EACH STRIP VI SCH ×4 (08:25→21:19)
--- NOTE | 2018-11-14 08:44 | NUR ---
GPS RN NOTES Reviewed Insulin Lantus order with Mallory BURGOS. Per , discontinue Lantus. Order noted and carried. Will continue to monitor.
--- NOTE | 2018-11-14 09:08 | NUR ---
KILO faxed a referral to [facility] with attention to Rufina to the fax number: [phone].
--- NOTE | 2018-11-14 09:08 | NUR ---
KILO faxed a referral to [facility] with attention to Elmira to the fax number: [phone].
[2018-11-14] MEDS: DIVALPROEX SODIUM 500 MG TABLET.DR PO SCH ×2 (09:15→21:18)
[2018-11-14] MEDS: risperiDONE 1 MG TABLET PO SCH ×2 (09:15→16:34)
[2018-11-14] MEDS: MAGNESIUM OXIDE 400 MG TABLET PO SCH ×2 (09:15→16:34)
[2018-11-14] MEDS: INSULIN GLARGINE, 100 UNIT/ML CARTRIDGE SQ SCH (09:16)
[2018-11-14] MEDS: INSULIN REGULAR, HUMAN 100 UNIT/ML 3 ML VIAL SQ PRN ×2 (12:46→17:11)
--- NOTE | 2018-11-14 14:45 | NUR ---
Group Note: SW encouraged the pt to participate in group therapy regarding discharge planning and the pt stated that she also spoke to the SW regarding SNF placement and that she does not need to talk about it in front of others. SW stated that it was part of her treatment plan to participate in group therapy but the pt continued to refuse and remained in her room.
--- NOTE | 2018-11-14 15:45 | NUR ---
Group Note: KILO encouraged the pt to participate in group therapy regarding discharge planning and the pt stated that she also spoke to the SW regarding SNF placement and that she does not need to talk about it in front of others. KILO stated that it was part of her treatment plan to participate in group therapy but the pt continued to refuse and remained in her room. Addendum: 11/15/18 at 1015 by HANNAH BOATENG KILO DID NOT SEE THE NOTE IN THE SYSTEM DUE TO A GLITCH AND POSTED IT AGAIN BUT NOW THERE IS TWO POSTS.
[2018-11-14 16:00] VITALS: BP 157/83
--- NOTE | 2018-11-14 16:03 | NUR ---
Zen ([phone]) from [facility] contacted the SW and stated that the pt was not accepted due her needs being more psych based that medical based.
--- NOTE | 2018-11-14 16:04 | NUR ---
Carmen ([phone]) from [facility] contacted the SW and stated that the pt was not accepted due to her Medicare status.
--- NOTE | 2018-11-14 16:05 | NUR ---
KILO faxed a referral to [facility] with attention to Tomy to the fax number: [phone].
--- NOTE | 2018-11-14 16:13 | NUR ---
Mena ([phone]) from [facility] contacted the pt and stated that the pt is listed as under Medicare. He stated that they are willing to accept once the pt calls Medicare and fixes this mistake.
[2018-11-14 19:47] VITALS: BP 127/49
[2018-11-15] MEDS: BLOOD SUGAR DIAGNOSTIC 1 EACH STRIP VI SCH ×4 (07:40→21:11)
[2018-11-15 08:00] VITALS: BP 122/60
[2018-11-15] MEDS: MAGNESIUM OXIDE 400 MG TABLET PO SCH ×2 (08:39→16:22)
[2018-11-15] MEDS: risperiDONE 1 MG TABLET PO SCH ×2 (08:39→16:22)
[2018-11-15] MEDS: DIVALPROEX SODIUM 500 MG TABLET.DR PO SCH ×2 (08:39→21:11)
[2018-11-15] MEDS: INSULIN GLARGINE, 100 UNIT/ML CARTRIDGE SQ SCH (08:41)
--- NOTE | 2018-11-15 11:44 | NUR ---
PC Hearing Notification: SW called the pts daughter, Carmen ([phone]), and left a voicemail stating that the pt has a PC hearing today around 3pm. SW left information regarding the details of the hearing on the voicemail message.
[2018-11-15] MEDS: INSULIN REGULAR, HUMAN 100 UNIT/ML 3 ML VIAL SQ PRN ×2 (11:56→17:34)
[2018-11-15 16:00] VITALS: BP 121/83
[2018-11-15 20:39] VITALS: BP 127/59
[2018-11-15] MEDS: *INSULIN REGULAR(HUMULIN R)HUM 100 UNIT/ML VIAL SQ PRN (21:13)
[2018-11-16] MEDS: BLOOD SUGAR DIAGNOSTIC 1 EACH STRIP VI SCH ×4 (07:30→21:17)
[2018-11-16 08:00] VITALS: BP 126/52
[2018-11-16] MEDS: DIVALPROEX SODIUM 500 MG TABLET.DR PO SCH ×2 (08:40→21:10)
[2018-11-16] MEDS: MAGNESIUM OXIDE 400 MG TABLET PO SCH ×3 (08:41→16:27)
[2018-11-16] MEDS: risperiDONE 1 MG TABLET PO SCH ×2 (08:41→16:27)
--- NOTE | 2018-11-16 11:41 | NUR ---
SW spoke to the pt and informed her that there is an accepting facility called [facility] in [place]. Pt stated that she likes the area but she did not want to be placed in a locked facility and will refuse to go there. She stated that her daughter, Valerie ([phone]), will take the pt into her home. SW stated that she would have to speak to her to confirm this information.
--- NOTE | 2018-11-16 11:41 | NUR ---
Thang ([phone]) from [facility] stated that the pt was accepted to their facility.
--- NOTE | 2018-11-16 11:43 | NUR ---
SW called Valerie ([phone]), pts daughter, and left a voicemail stating that the SW would like to discuss the pts discharge plan.
[2018-11-16] MEDS: INSULIN GLARGINE, 100 UNIT/ML CARTRIDGE SQ SCH (11:48)
[2018-11-16] MEDS: *INSULIN REGULAR(HUMULIN R)HUM 100 UNIT/ML VIAL SQ PRN ×3 (11:49→21:22)
--- NOTE | 2018-11-16 14:14 | NUR ---
Valerie ([phone]), pts daughter, called the SW and stated that she will not be able to accommodate the pt in her home and that a different discharge plan will need to be created.
--- NOTE | 2018-11-16 14:15 | NUR ---
SW spoke to the pt and informed her that her daughter will not be able to take her into her home and that at this time the only other option for discharge would be a locked facility. Pt stated, "I am not a prisoner and I do not deserve a locked facility." SW stated that the only other option that she can think about is having her stay a bit longer so that she can receive her check and be placed in a board and care or have the pt be discharged to the streets. Pt stated that there is a adventist that she can go to where she can sleep and receive assistance. SW stated that she would be discharged to a homeless fpc and not a adventist for safety purposes.
[2018-11-16 16:00] VITALS: BP 118/65
[2018-11-16 20:06] VITALS: BP 105/49
[2018-11-16] MEDS: TEMAZEPAM 7.5 MG CAPSULE PO PRN (21:41)
[2018-11-17] MEDS: BLOOD SUGAR DIAGNOSTIC 1 EACH STRIP VI SCH ×4 (07:56→21:30)
[2018-11-17 08:00] VITALS: BP 136/69
[2018-11-17] MEDS: risperiDONE 1 MG TABLET PO SCH ×2 (09:05→16:04)
[2018-11-17] MEDS: DIVALPROEX SODIUM 500 MG TABLET.DR PO SCH ×2 (09:05→21:30)
[2018-11-17] MEDS: MAGNESIUM OXIDE 400 MG TABLET PO SCH ×2 (09:09→16:04)
[2018-11-17] MEDS: INSULIN REGULAR, HUMAN 100 UNIT/ML 3 ML VIAL SQ PRN ×2 (09:15→12:49)
[2018-11-17] MEDS: INSULIN GLARGINE, 100 UNIT/ML CARTRIDGE SQ SCH (09:18)
--- NOTE | 2018-11-17 10:17 | NUR ---
KILO called the pts daughter, Carmen ([phone]), and informed her of the results of the PC hearing and also provided her with an update regarding the pts discharge plan. KILO informed her that the pt is currently refusing to go to a SNF even though she worked it out with her insurance company to get accepted to a SNF. KILO informed the daughter that the pt is now stating that she wants to be discharged to the streets. Pts daughter stated that the pt has done this multiple times and never accepts help or stays in a place for too long. She stated that the pt has a right to make her own decisions and that there is nothing that the she will be able to do to help the pt. KILO stated that she would call her at the time of discharge and provide her with an update.
[2018-11-17 16:00] VITALS: BP 138/68
[2018-11-17 20:00] VITALS: BP 114/54
--- NOTE | 2018-11-17 20:20 | NUR ---
RECEIVED PATIENT FROM GPS. AO X 3, ABLE TO MAKE NEEDS KNOWN. NO ACUTE DISTRESS NOTED. DENIES ANY PAIN AT THIS TIME. SAFETY REMINDERS GIVEN. ON LOW BED WITH BILATERAL UPPER SIDE RAILS UP. CALL [place] WITHIN EASY REACH. WILL CONTINUE TO MONITOR.
--- NOTE | 2018-11-17 20:30 | NUR ---
GPS RN NOTES : PT. TRANSFER TO OVERFLOW ROOM 208_2 , IN STABLE CONDTION AND WITH ALL BELONGINGS , NO ACUTE DISTRESS NOTED, REPORT GIVEN TO RVI RN FOR CONTINUITY CARE
[2018-11-17 21:00] VITALS: BP 114/54
[2018-11-17] MEDS: *INSULIN REGULAR(HUMULIN R)HUM 100 UNIT/ML VIAL SQ PRN (21:34)
--- NOTE | 2018-11-18 06:15 | NUR ---
PATIENT ASLEEP, EASILY AROUSABLE. RESPIRATIONS EVEN. NO SIGNS OF PAIN NOTED. NO SYMPTOMS OF HYPER/HYPOGLYCEMIA. DUE MEDS GIVEN WITH NO ASE NOTED. NEEDS ATTENDED. SAFETY PRECAUTIONS AND COMFORT MEASURES IN PLACE. WILL GIVE REPORT TO DAY SHIFT FOR CONTINUITY OF CARE. SITTER AT BEDSIDE.
[2018-11-18] MEDS: BLOOD SUGAR DIAGNOSTIC 1 EACH STRIP VI SCH ×4 (06:39→21:29)
[2018-11-18] MEDS: INSULIN REGULAR, HUMAN 100 UNIT/ML 3 ML VIAL SQ PRN ×3 (06:41→16:59)
--- NOTE | 2018-11-18 07:30 | NUR ---
MS2 GPS OVERFLOW OPENING NOTES RECEIVED PT SITTING UP AT THE EDGE OF BED EATING BREAKFAST. PT IS A/O X3, AFEBRILE. RESPIRATIONS ARE EVEN AND UNLABORED, NOT IN ANY ACUTE DISTRESS NOTED. PT DENIES ANY PAIN, NO C/O SOB, N/V. NO IV ACCESS. SITTER AT BEDSIDE. SAFETY MEASURES ARE IN PLACE. WILL MONITOR THROUGHOUT SHIFT FOR CONTINUITY OF CARE.
[2018-11-18 08:00] VITALS: BP 119/51
--- NOTE | 2018-11-18 08:25 | NUR ---
GPS OVERFLOW NOTES-- PT WAS SEEN AND EXAMINED BY DR. SHEPHERD.
[2018-11-18] MEDS: DIVALPROEX SODIUM 500 MG TABLET.DR PO SCH ×2 (08:28→21:30)
[2018-11-18] MEDS: MAGNESIUM OXIDE 400 MG TABLET PO SCH ×2 (08:28→16:06)
[2018-11-18] MEDS: risperiDONE 1 MG TABLET PO SCH ×2 (08:28→16:06)
[2018-11-18] MEDS: INSULIN GLARGINE, 100 UNIT/ML CARTRIDGE SQ SCH (08:33)
--- NOTE | 2018-11-18 18:23 | NUR ---
MS RN CLOSING NOTES ALL DUE MEDS GIVEN. NEEDS MET AND RENDERED. PT IS A/O X3, AFEBRILE. RESPIRATIONS ARE EVEN AND UNLABORED, NOT IN ANY ACUTE DISTRESS NOTED. PT DENIES ANY PAIN AT THIS TIME, NO C/O SOB, N/V. NO IV ACCESS. DENIES ANY SI/HI. SAFETY MEASURES ARE IN PLACE. REMINDED PT TO USE CALL LIGHT WHEN ASSISTANCE IS NEEDED, CALL LIGHT IS LEFT WITHIN REACH. SITTER AT BEDSIDE. WILL ENDORSE TO NEXT SHIFT FOR CONTINUITY OF CARE.
--- NOTE | 2018-11-18 19:40 | NUR ---
RN GPS OPENING NOTES RECEIVED PATIENT STANDING. LOOKING OUT THE WINDOW. HAS PLEASANT APPROACH. ALERT AND ORIENTED X3, VERBALLY RESPONSIVE, ABLE TO MAKE NEEDS KNOWN. BREATHING EVEN AND UNLABORED. NO SOB. ON ROOM AIR. NO COMPLAINTS OF PAIN OR DISCOMFORT. NO IV ACCESS PER GPS PROTOCOL. SKIN DRY AND WARM TO TOUCH. SITTER AT BEDSIDE. ALL OTHER NEEDS ATTENDED TO. SAFETY MEASURES IN PLACE. CALL LIGHT WITHIN REACH. WILL CONTINUE TO MONITOR.
[2018-11-18 20:39] VITALS: BP 123/63
[2018-11-18] MEDS: *INSULIN REGULAR(HUMULIN R)HUM 100 UNIT/ML VIAL SQ PRN (21:31)
--- NOTE | 2018-11-19 02:30 | NUR ---
RN GPS NOTES PATIENT SLEEPING IN BED. NOT IN ANY DISTRESS. BREATHING EVEN AND UNLABORED. SITTER AT BEDSIDE. WILL CONTINUE TO MONITOR
[2018-11-19] MEDS: BLOOD SUGAR DIAGNOSTIC 1 EACH STRIP VI SCH ×4 (06:42→22:33)
[2018-11-19] MEDS: INSULIN REGULAR, HUMAN 100 UNIT/ML 3 ML VIAL SQ PRN ×2 (06:44→17:58)
--- NOTE | 2018-11-19 06:52 | NUR ---
RN GPS CLOSING NOTES PATIENT RESTING IN BED. NO ACUTE CHANGES THROUGHOUT SHIFT. DENIES SI/HI. NO BEHAVIORAL ISSUES NOTED. BREATHING EVEN AND UNLABORED. NO SOB. ON ROOM AIR. NO COMPLAINTS OF PAIN OR DISCOMFORT. NO IV ACCESS PER GPS PROTOCOL. SITTER AT BEDSIDE. ALL NEEDS ATTENDED TO. SAFETY MEASURES IN PLACE. CALL LIGHT WITHIN REACH. WILL ENDORSE TO ONCOMING NURSE FOR GROVER.
--- NOTE | 2018-11-19 07:30 | NUR ---
RN OPENING NOTES RECEIVED PATIENT IN BED RESTING. PATIENT IS A/O X3, ABLE TO MAKE NEEDS KNOWN. RESPIRATIONS ARE EVEN AND UNLABORED, NOT IN ANY FORM OF DISTRESS. DENIES ANY PAIN, NO C/O SOB. NO IV ACCESS. SITTER AT BEDSIDE FOR SAFETY. SAFETY MEASURES ARE IN PLACE. BED IN LOW/LOCKED PSOITION, [facility] UPX2, WILL MONITOR THROUGHOUT SHIFT FOR CONTINUITY OF CARE.
[2018-11-19 08:00] VITALS: BP 103/60
[2018-11-19] MEDS: DIVALPROEX SODIUM 500 MG TABLET.DR PO SCH ×2 (08:26→22:33)
[2018-11-19] MEDS: risperiDONE 1 MG TABLET PO SCH ×2 (08:27→17:44)
[2018-11-19] MEDS: MAGNESIUM OXIDE 400 MG TABLET PO SCH ×2 (08:27→17:42)
[2018-11-19] MEDS: INSULIN GLARGINE, 100 UNIT/ML CARTRIDGE SQ SCH (08:33)
--- NOTE | 2018-11-19 13:39 | NUR ---
BS 96, NO INSULIN COVERAGE. WILL MONITOR ACCORDINGLY
[2018-11-19 16:00] VITALS: BP 102/51
--- NOTE | 2018-11-19 19:00 | NUR ---
TRANSFERRED PATIENT BACK TO GPS ROOM 213-1 VIA WHEELCHAIR. PATIENT IN STABLE CONDITION. ALL BELONGINGS AND CHART WAS GIVEN TO GPS STAFF IN THE NURSING STATION. REPORT GIVEN TO PANCHO GOETZ.
[2018-11-19 20:00] VITALS: BP 106/40
[2018-11-19] MEDS: TEMAZEPAM 7.5 MG CAPSULE PO PRN (22:33)
[2018-11-20] MEDS: BLOOD SUGAR DIAGNOSTIC 1 EACH STRIP VI SCH ×4 (07:49→21:13)
[2018-11-20 08:00] VITALS: BP 116/59
[2018-11-20] MEDS: MAGNESIUM OXIDE 400 MG TABLET PO SCH ×2 (08:43→16:35)
[2018-11-20] MEDS: risperiDONE 1 MG TABLET PO SCH ×2 (08:43→16:36)
[2018-11-20] MEDS: DIVALPROEX SODIUM 500 MG TABLET.DR PO SCH ×2 (08:43→21:11)
[2018-11-20] MEDS: INSULIN GLARGINE, 100 UNIT/ML CARTRIDGE SQ SCH (09:02)
[2018-11-20 16:00] VITALS: BP 148/73
[2018-11-20 20:00] VITALS: BP 113/50
[2018-11-20] MEDS: *INSULIN REGULAR(HUMULIN R)HUM 100 UNIT/ML VIAL SQ PRN (21:16)
[2018-11-20] MEDS: TEMAZEPAM 7.5 MG CAPSULE PO PRN (21:56)
[2018-11-21] MEDS: BLOOD SUGAR DIAGNOSTIC 1 EACH STRIP VI SCH ×4 (07:49→21:20)
[2018-11-21] MEDS: INSULIN REGULAR, HUMAN 100 UNIT/ML 3 ML VIAL SQ PRN ×2 (07:51→16:38)
[2018-11-21 08:00] VITALS: BP 103/51
[2018-11-21] MEDS: risperiDONE 1 MG TABLET PO SCH ×2 (08:06→16:13)
[2018-11-21] MEDS: MAGNESIUM OXIDE 400 MG TABLET PO SCH ×2 (08:06→16:13)
[2018-11-21] MEDS: DIVALPROEX SODIUM 500 MG TABLET.DR PO SCH ×2 (08:06→20:40)
[2018-11-21] MEDS: INSULIN GLARGINE, 100 UNIT/ML CARTRIDGE SQ SCH (08:07)
--- NOTE | 2018-11-21 11:36 | NUR ---
GPS RN NOTES-- BLOOD SUGAR 114. NO INSULIN COVERAGE. NO S/SX OF HYPOGLYCEMIA. WILL CONTINUE TO MONITOR.
[2018-11-21 16:00] VITALS: BP 118/54
[2018-11-21 19:42] VITALS: BP 123/59
[2018-11-21] MEDS: *INSULIN REGULAR(HUMULIN R)HUM 100 UNIT/ML VIAL SQ PRN (21:23)
--- NOTE | 2018-11-21 23:13 | NUR ---
GPS-RN PATIENT WILL BE TRANSFERRED TO [facility] IN ROOM 324-2. REPORT GIVEN TO RVI RN, FOR CONTINUITY OF CARE. PATIENT IS ALERT AND ORIENTED X3, IN NO ACUTE DISTRESS NOTED. PATIENT IN STABLE CONDITION AND WITH ALL BELONGINGS SENT AND WAS GIVEN TO MS STAFF. DENIES SI/HI OR HALLUCINATIONS AT THIS TIME.
--- NOTE | 2018-11-21 23:20 | NUR ---
RECEIVED PATIENT FROM GPS. AO X 3, ABLE TO MAKE NEEDS KNOWN. NO ACUTE DISTRESS NOTED. BELONGINGS PLACED IN CLOSET. SAFETY REMINDERS GIVEN. ON LOW BED WITH BILATERAL UPPER SIDE RAILS UP. CALL [place] WITHIN EASY REACH. WILL CONTINUE TO MONITOR. SITTER AT BEDSIDE PER PROTOCOL.
--- NOTE | 2018-11-22 06:00 | NUR ---
PATIENT ASLEEP, EASILY AROUSABLE. RESPIRATIONS EVEN. NO SIGNS OF PAIN NOTED. NO SYMPTOMS OF HYPER/HYPOGLYCEMIA. NEEDS ATTENDED. SAFETY PRECAUTIONS AND COMFORT MEASURES IN PLACE. WILL GIVE REPORT TO DAY SHIFT FOR CONTINUITY OF CARE. SITTER AT BEDSIDE.
[2018-11-22] MEDS: BLOOD SUGAR DIAGNOSTIC 1 EACH STRIP VI SCH ×4 (06:44→21:34)
[2018-11-22] MEDS: INSULIN REGULAR, HUMAN 100 UNIT/ML 3 ML VIAL SQ PRN ×2 (06:46→17:12)
--- NOTE | 2018-11-22 07:10 | NUR ---
RN OPENING NOTES RECEIVED PATIENT IN BED RESTING. PATIENT IS A/O X3, ABLE TO MAKE NEEDS KNOWN. RESPIRATIONS ARE EVEN AND UNLABORED, NOT IN ANY FORM OF DISTRESS. DENIES ANY PAIN, NO C/O SOB. NO IV ACCESS. SITTER AT BEDSIDE FOR SAFETY. SAFETY MEASURES ARE IN PLACE. BED IN LOW/LOCKED PSOITION, [facility] UPX2, WILL MONITOR THROUGHOUT SHIFT FOR CONTINUITY OF CARE.
[2018-11-22 08:00] VITALS: BP_SYST 120; BP_SYST 158; BP_DIAS 61; BP_DIAS 67
[2018-11-22] MEDS: DIVALPROEX SODIUM 500 MG TABLET.DR PO SCH ×2 (08:21→20:51)
[2018-11-22] MEDS: risperiDONE 1 MG TABLET PO SCH ×2 (08:21→16:56)
[2018-11-22] MEDS: MAGNESIUM OXIDE 400 MG TABLET PO SCH ×2 (08:21→16:56)
[2018-11-22] MEDS: INSULIN GLARGINE, 100 UNIT/ML CARTRIDGE SQ SCH (08:31)
[2018-11-22 16:00] VITALS: BP 138/70
[2018-11-22 19:20] VITALS: BP 103/56
--- NOTE | 2018-11-22 19:31 | NUR ---
RN CLOSING NOTES PATIENT IN STABLE CONDITION. ALL NEEDS ATTENDED AND PROIVIDED. ALL DUE MEDS GIVEN OREDER. KEPT PATIENT SAFE AND COMFORTABLE. BED IN LOW/LOCKED PSOITOIN, [facility] UPX2, CALL LIGHT IN REACH. SITTER AT BEDSIDE. ENDORSED TO PANCHO OLIVA FOR GROVER
--- NOTE | 2018-11-22 20:00 | NUR ---
RECEIVED PATIENT AWAKE IN BED WITH NO DISTRESS NOTED. CALL LIGHT WITHIN REACH. SITTER AT BEDSIDE. NO C/O PAIN OR DISCOMFORT. ENCOURAGED USE OF CALL LIGHT FOR ASSISTANCE AND VERBALIZED GOOD UNDERSTANDING. BED IN LOW LOCK SETTING. ROOM FREE OF CLUTTER AND BELONGINGS KEPT NEAR BEDSIDE. WILL CONTINUE TO MONITOR.
--- NOTE | 2018-11-22 21:00 | NUR ---
PATIENT TRANSFERRED TO [facility] UNIT RM 219-2 VIA IN STABLE CONDITION. REPORT GIVEN TO CHARGE NURSE. ALL BELONGINGS TAKEN WITH PATIENT
[2018-11-22] MEDS: *INSULIN REGULAR(HUMULIN R)HUM 100 UNIT/ML VIAL SQ PRN (21:33)
[2018-11-23] MEDS: BLOOD SUGAR DIAGNOSTIC 1 EACH STRIP VI SCH ×2 (07:38→11:46)
[2018-11-23 08:00] VITALS: BP 114/65
[2018-11-23] MEDS: MAGNESIUM OXIDE 400 MG TABLET PO SCH (08:08)
[2018-11-23] MEDS: DIVALPROEX SODIUM 500 MG TABLET.DR PO SCH (08:08)
[2018-11-23] MEDS: risperiDONE 1 MG TABLET PO SCH (08:10)
[2018-11-23] MEDS: INSULIN GLARGINE, 100 UNIT/ML CARTRIDGE SQ SCH (08:11)
[2018-11-23] MEDS: INSULIN REGULAR, HUMAN 100 UNIT/ML 3 ML VIAL SQ PRN (08:14)
--- NOTE | 2018-11-23 09:05 | NUR ---
KILO sent an application for the pt via email to [email or web address] to refer the pt to the [facility].
--- NOTE | 2018-11-23 09:22 | NUR ---
KILO called the Medicare Office ([phone]) with the pt (Call Reference Number: [id number]) to correct the pts date of but was told that the SW would need to call the Social Security Office.
--- NOTE | 2018-11-23 10:35 | NUR ---
KILO called the [employer] Security Office ([phone]) and was placed on hold for 52 minutes. KILO spoke to a claims service representative who stated that the pt would have to visit their office. KILO stated that the pt would like to visit the [place] office and the claims service representative put the SW on hold. Right after that the call was dropped so the SW will call again.
--- NOTE | 2018-11-23 10:38 | NUR ---
KILO called the [facility] and was transferred to the [facility] line three times and the mailbox is full. KILO informed the main desk of this issue and was told to try back later.
--- NOTE | 2018-11-23 12:34 | NUR ---
SW called the Social Security Office ([phone]) with the pt and spoke to Reba who stated that the pt has to go to the [place] office located at [address] [place] [address]; ([phone]). SW stated that she will provide the pt with a face sheet as her form of identification. Pt stated that she will go tomorrow before 4pm.
--- NOTE | 2018-11-23 12:35 | NUR ---
DR. CRUZ GAVE AN ORDER TO D/C PT. TO [facility] AND TO FOLLOW UP WITH PSYCH AND MEDICAL DOCTORS.
--- NOTE | 2018-11-23 14:13 | NUR ---
KILO called the pts daughter, Carmen ([phone]), and left her a voicemail regarding the details of the pts discharge. KILO also provided a call back number in case she had any questions.
--- NOTE | 2018-11-23 14:20 | NUR ---
Discharge Note: Pt was discharged to [address] located at [address] [place] [address]; ([phone]). Pts daughter was notified, Carmen ([phone]). Pt was discharged at 2pm and pt was transported via bus and was provided with a TAP card. Upon discharge, the pt appeared to be in a euthymic mood and presented with a distressed affect. Pt denied both suicidal and homicidal ideation as well as auditory and visual hallucinations. Pt was provided with homeless resources such as shelters, food griffiths, clinics, and substance abuse. Pt was referred to [facility] located at [address] [place] [address]; ; fax was sent to: , for psychiatric services. Pt was also referred to [facility] located at [address], [place], [place]; ; for medical services.
--- NOTE | 2018-11-23 14:38 | NUR ---
GPS/RN-NOTES DISCHARGE PATIENT TO [place] [id number] CR[address]. ROSARIO AWARE AND AGREED OF PATIENT'S DISCHARGE WITH ORDERS. PATIENT DID NOT VERBALIZE SI/HI,DENIES VISUAL/AUDITORY HALLUCINATIONS AT THE TIME OF DISCHARGE.ALL DISCHARGE MEDICATIONS WAS REVIEWED WITH THE PATIENT WITH UNDERSTANDING. INSTRUCTED PATIENT TO GO TO THE NEAREST EMERGENCY OR CALL 911 [facility] OF EMERGENCY. ALL DISCHARGE PAPERS WAS SIGN BY THE PATIENT.PATIENT LEFT THE UNIT IN STABLE CONDITION ALERT ORIENTEDX3, AMBULATORY STEADY GAIT WITH ALL BELONGINGS. TAP CARD WAS GIVEN TO HER. PER KILO, PATIENT'S DTR ( [facility] [phone]) WAS MADE AWARE OF THE PATIENT'S DISCHARGE. PATIENT WAS ASSISTED BY ONE STAFF IN THE LOBBY FOR SAFETY. Addendum: 11/23/18 at 1639 by SARA OCAMPO RN IN ADDITION TO MY ABOVE NOTES ALL RX WAS GIVEN TO THE PATIENT UPON DISCHARGE.
== END 2018-11-23 14:20 | disposition home or self-care (01) | DRG 885 ==
LOC: GPS 21:12 → GPSOV2 11-17 20:50 → GPS 11-19 18:42 → GPSOV 11-21 23:28 → GPS 11-22 21:58
PROVIDERS: ADMIT Psychiatry & Neurology Psychiatry; ATTEND Internal Medicine
DX: F25.9 Schizoaffective disorder, unspecified (principal); E43 Unspecified severe protein-calorie malnutrition; E11.65 Type 2 diabetes mellitus with hyperglycemia; F29 Unspecified psychosis not due to a substance or known physiological condition; F41.9 Anxiety disorder, unspecified; F32.9 Major depressive disorder, single episode, unspecified; I10 Essential (primary) hypertension; K21.9 Gastro-esophageal reflux disease without esophagitis; E88.09 Other disorders of plasma-protein metabolism, not elsewhere classified; Z68.29 Body mass index [BMI] 29.0-29.9, adult; Z79.4 Long term (current) use of insulin; Z73.6 Limitation of activities due to disability
CPT/HCPCS: 36415; 80053-TC; 80061-TC; 80164-TC; 82962-TC; 87081-TC; J1815

== ENCOUNTER 2023-10-08 12:13 | Inpatient (IN) | payer MEDICARE, OTHER ==
[~2023-10-08] VITALS: Ht 175.3 cm; Wt 83.5 kg
[~2023-10-08 12:13] MED LIST changes: +INSU100V39 SQ; +INSU100V7 SQ; +MAGN400T8 PO; +NICO-762 TP; +[UNRECOGNIZED DRUG - CODE] SUBCUT
[2023-10-08] MEDS ORDERED: METF-442 PO (13:01)
[2023-10-08] MEDS ORDERED: ATOR80TA PO (13:01)
[2023-10-08] MEDS ORDERED: QUET25TA PO (13:01)
[2023-10-08] MEDS ORDERED: VALP250S4 PO (13:01)
[2023-10-08] MEDS ORDERED: MULT-213 PO (13:01)
[2023-10-08] MEDS ORDERED: ACET-868 PO (13:01)
[2023-10-08] MEDS ORDERED: BENZ1TAB7 PO (13:01)
[2023-10-08] MEDS ORDERED: IPRA4AER IH (13:01)
[2023-10-08] MEDS ORDERED: HALO100A2 IM (13:01)
[2023-10-08] MEDS ORDERED: GLUC1KIT IM (13:01)
[2023-10-08 13:25] LABS: BASOPHILS % (AUTO) 0.5 % (0.0-2.0); EOSINOPHILS # (AUTO) 0.1 K/uL (0.0-0.7); EOSINOPHILS % (AUTO) 1.2 % (0.0-6.0); HEMATOCRIT 36 % (33-45); HEMOGLOBIN 11.8 g/dL (11.5-14.8); LYMPHOCYTES # (AUTO) 2.3 K/uL (0.8-4.8); LYMPHOCYTES % (AUTO) 43.6 % (20.0-44.0); MEAN CORPUSCULAR HEMOGLOBIN 30 PG (26.0-33.0); MEAN CORPUSCULAR HGB CONC 33 g/dl (31.0-36.0); MEAN CORPUSCULAR VOLUME 89 fL (82-100); MONOCYTES # (AUTO) 0.7 K/uL (0.1-1.30); MONOCYTES % (AUTO) 13.9 % (2.0-12.0); NEUTROPHILS # (AUTO) 2.2 K/uL (1.8-8.9); NEUTROPHILS % (AUTO) 40.8 % (43.0-81.0); PLATELET COUNT (AUTO) 173 K/uL (150-450); RED BLOOD CELL COUNT(AUTO) 3.99 MIL/uL (4.0-5.2); RED CELL DISTRIBUTION WIDTH 13.7 % (11.5-15.0); WHITE BLOOD COUNT (AUTO) 5.3 K/uL (4.3-11.0)
[2023-10-08 13:33] LABS: CALCIUM, SERUM 9.2 mg/dL (8.5-10.1); CARBON DIOXIDE 29 mmol/L (21-32); CHLORIDE 104 mmol/L (98-107); CREATININE 1.1 mg/dL (0.6-1.3); GLUCOSE 138 mg/dL (74-106); POTASSIUM 4.4 mmol/L (3.5-5.1); SODIUM SERUM 139 mmol/L (136-145); UREA NITROGEN, BLOOD 11 mg/dL (7-18)
[2023-10-08 13:45] LABS: NT-PRO BNP 411 pg/mL (0-125)
[2023-10-08 16:00] VITALS: BP 138/116; TEMP 98.6; O2SAT 100
[2023-10-08] MEDS ORDERED: APIXABAN 5 MG TABLET PO ONE (17:00)
[2023-10-08] MEDS ORDERED: Z GUARD REMEDY 4 OZ OINT TP PRN (17:30)
[2023-10-08] MEDS ORDERED: ENOXAPARIN SODIUM 40 MG/0.4 ML DISP.SYRIN SQ SCH (17:30)
[2023-10-08] MEDS ORDERED: ONDANSETRON HCL/PF 4 MG/2 ML VIAL IVP PRN (17:30)
[2023-10-08] MEDS: AZITHROMYCIN 250 MG TABLET PO ONE (18:18)
[2023-10-08] MEDS: FLUTICASONE PROPIONATE 16 GM BOTTLE NS SCH (18:18)
[2023-10-08] MEDS ORDERED: ALBUTEROL HALF STRENGTH 1.25 MG/3 ML VIAL.NEB NEB PRN (19:30)
[2023-10-08 20:00] VITALS: BP 132/54; TEMP 98.8; O2SAT 100
[2023-10-09] VITALS: BP 125/53; TEMP 98.2; O2SAT 99
[2023-10-09] MEDS: IV NS 0.9% 1,000 ML IV PRN (00:28)
[2023-10-09 04:00] VITALS: BP 127/60; TEMP 98; O2SAT 99
[2023-10-09 07:04] LABS: BASOPHILS % (AUTO) 0.5 % (0.0-2.0); EOSINOPHILS # (AUTO) 0.1 K/uL (0.0-0.7); EOSINOPHILS % (AUTO) 1.7 % (0.0-6.0); HEMATOCRIT 32 % (33-45); HEMOGLOBIN 10.8 g/dL (11.5-14.8); LYMPHOCYTES # (AUTO) 2.4 K/uL (0.8-4.8); LYMPHOCYTES % (AUTO) 41.3 % (20.0-44.0); MEAN CORPUSCULAR HEMOGLOBIN 30 PG (26.0-33.0); MEAN CORPUSCULAR HGB CONC 34 g/dl (31.0-36.0); MEAN CORPUSCULAR VOLUME 90 fL (82-100); MONOCYTES # (AUTO) 0.9 K/uL (0.1-1.30); MONOCYTES % (AUTO) 15.4 % (2.0-12.0); NEUTROPHILS # (AUTO) 2.3 K/uL (1.8-8.9); NEUTROPHILS % (AUTO) 41.1 % (43.0-81.0); PLATELET COUNT (AUTO) 156 K/uL (150-450); RED BLOOD CELL COUNT(AUTO) 3.56 MIL/uL (4.0-5.2); RED CELL DISTRIBUTION WIDTH 13.3 % (11.5-15.0); WHITE BLOOD COUNT (AUTO) 5.7 K/uL (4.3-11.0)
[2023-10-09 07:19] LABS: CALCIUM, SERUM 8.3 mg/dL (8.5-10.1); CARBON DIOXIDE 25 mmol/L (21-32); CHLORIDE 105 mmol/L (98-107); CREATININE 0.9 mg/dL (0.6-1.3); GLUCOSE 234 mg/dL (74-106); MAGNESIUM 1.4 mg/dL (1.8-2.4); PHOSPHORUS 3.1 mg/dL (2.5-4.9); POTASSIUM 4.1 mmol/L (3.5-5.1); SODIUM SERUM 139 mmol/L (136-145); UREA NITROGEN, BLOOD 10 mg/dL (7-18)
[2023-10-09 07:45] LABS: IRON, SERUM 32 ug/dl (50-175); TOTAL IRON BINDING CAPACITY 204 ug/dl (250-450)
[2023-10-09 08:00] VITALS: BP 131/57; TEMP 97.9; O2SAT 97
[2023-10-09] MEDS: PANTOPRAZOLE 40 MG TABLET.DR PO SCH (08:01)
[2023-10-09 08:29] LABS: CHOLESTEROL 129 mg/dL (<200); HDL CHOLESTEROL 60 mg/dL (40-60); LDL 52 mg/dL (0-99); TRIGLYCERIDES 115 mg/dL (30-150)
[2023-10-09] MEDS: MAGNESIUM OXIDE 400 MG TABLET PO SCH (10:17)
[2023-10-09 16:00] VITALS: BP 140/68; TEMP 98.1; O2SAT 100
[2023-10-09] MEDS: AZITHROMYCIN 250 MG TABLET PO SCH (17:26)
[2023-10-09] MEDS: APIXABAN 5 MG TABLET PO SCH (17:26)
[2023-10-10] VITALS: BP 147/56; TEMP 98.2; O2SAT 100
[2023-10-10] MEDS: ACETAMINOPHEN 325 MG TABLET PO PRN (00:04)
[2023-10-10 08:00] VITALS: BP 139/72; TEMP 98.2; O2SAT 100
[2023-10-10 08:09] LABS: BASOPHILS % (AUTO) 0.3 % (0.0-2.0); EOSINOPHILS # (AUTO) 0.1 K/uL (0.0-0.7); HEMATOCRIT 36 % (33-45); HEMOGLOBIN 12.2 g/dL (11.5-14.8); LYMPHOCYTES # (AUTO) 2.3 K/uL (0.8-4.8); LYMPHOCYTES % (AUTO) 42.2 % (20.0-44.0); MEAN CORPUSCULAR HEMOGLOBIN 30 PG (26.0-33.0); MEAN CORPUSCULAR HGB CONC 34 g/dl (31.0-36.0); MEAN CORPUSCULAR VOLUME 90 fL (82-100); MONOCYTES # (AUTO) 0.6 K/uL (0.1-1.30); MONOCYTES % (AUTO) 11.2 % (2.0-12.0); NEUTROPHILS # (AUTO) 2.5 K/uL (1.8-8.9); NEUTROPHILS % (AUTO) 45.3 % (43.0-81.0); PLATELET COUNT (AUTO) 180 K/uL (150-450); RED BLOOD CELL COUNT(AUTO) 4.02 MIL/uL (4.0-5.2); RED CELL DISTRIBUTION WIDTH 13.3 % (11.5-15.0); WHITE BLOOD COUNT (AUTO) 5.4 K/uL (4.3-11.0)
[2023-10-10] MEDS: MENTHOL/CETYLPYRD (CEPACOL) 1 LOZ LOZENGE PO PRN (08:27)
[2023-10-10 08:59] LABS: CARBON DIOXIDE 25 mmol/L (21-32); CHLORIDE 105 mmol/L (98-107); CREATININE 0.8 mg/dL (0.6-1.3); GLUCOSE 246 mg/dL (74-106); PHOSPHORUS 3.5 mg/dL (2.5-4.9); POTASSIUM 4.2 mmol/L (3.5-5.1); SODIUM SERUM 139 mmol/L (136-145); UREA NITROGEN, BLOOD 9 mg/dL (7-18)
[2023-10-10 09:17] LABS: MAGNESIUM 1.9 mg/dL (1.8-2.4)
[2023-10-10] MEDS ORDERED: DEXTROSE 50%-WATER 50 ML DISP.SYRIN IV PRN ×2 (14:30)
[2023-10-10] MEDS ORDERED: INSULIN REGULAR, HUMAN 100 UNIT/ML 3 ML VIAL SQ PRN (14:30)
[2023-10-10 16:00] VITALS: BP 139/72; TEMP 97.6; O2SAT 100
[2023-10-10] MEDS: BLOOD SUGAR DIAGNOSTIC 1 EACH STRIP IN SCH (17:36)
[2023-10-10] MEDS ORDERED: BLOOD SUGAR DIAGNOSTIC 1 EACH STRIP IN SCH (18:00)
[2023-10-10] MEDS: INSULIN REGULAR, HUMAN 100 UNIT/ML 3 ML VIAL SQ PRN (22:12)
[2023-10-11 02:00] VITALS: BP 146/64; TEMP 98.2; O2SAT 100
[2023-10-11 07:13] LABS: BASOPHILS % (AUTO) 0.5 % (0.0-2.0); EOSINOPHILS # (AUTO) 0.1 K/uL (0.0-0.7); EOSINOPHILS % (AUTO) 1.6 % (0.0-6.0); HEMATOCRIT 36 % (33-45); HEMOGLOBIN 11.9 g/dL (11.5-14.8); LYMPHOCYTES # (AUTO) 2.8 K/uL (0.8-4.8); LYMPHOCYTES % (AUTO) 46.2 % (20.0-44.0); MEAN CORPUSCULAR HEMOGLOBIN 30 PG (26.0-33.0); MEAN CORPUSCULAR HGB CONC 34 g/dl (31.0-36.0); MEAN CORPUSCULAR VOLUME 89 fL (82-100); MONOCYTES # (AUTO) 0.7 K/uL (0.1-1.30); MONOCYTES % (AUTO) 11.5 % (2.0-12.0); NEUTROPHILS # (AUTO) 2.5 K/uL (1.8-8.9); NEUTROPHILS % (AUTO) 40.2 % (43.0-81.0); PLATELET COUNT (AUTO) 184 K/uL (150-450); RED BLOOD CELL COUNT(AUTO) 4.01 MIL/uL (4.0-5.2); RED CELL DISTRIBUTION WIDTH 13.5 % (11.5-15.0); WHITE BLOOD COUNT (AUTO) 6.2 K/uL (4.3-11.0)
[2023-10-11 07:25] LABS: CALCIUM, SERUM 8.8 mg/dL (8.5-10.1); CARBON DIOXIDE 27 mmol/L (21-32); CHLORIDE 107 mmol/L (98-107); CREATININE 0.9 mg/dL (0.6-1.3); GLUCOSE 191 mg/dL (74-106); MAGNESIUM 1.7 mg/dL (1.8-2.4); PHOSPHORUS 3.5 mg/dL (2.5-4.9); POTASSIUM 4.1 mmol/L (3.5-5.1); SODIUM SERUM 142 mmol/L (136-145); UREA NITROGEN, BLOOD 8 mg/dL (7-18)
[2023-10-11 08:00] VITALS: BP 140/70; TEMP 97.7; O2SAT 100
[2023-10-11] MEDS: MAGNESIUM OXIDE 400 MG TABLET PO ONE (10:28)
[2023-10-11 16:00] VITALS: BP 147/72; TEMP 97.7; O2SAT 100
[2023-10-11 18:00] VITALS: BP 187/72; TEMP 97.7; O2SAT 100
[2023-10-11] MEDS ORDERED: AZIT250T PO (18:59)
[2023-10-11] MEDS ORDERED: APIX5TAB PO (18:59)
== END 2023-10-11 20:22 | DRG 308 ==
LOC: ER 12:33 → TELE-TD 15:33 → TELE1 17:54 → MEDSG1 10-09 09:09
PROVIDERS: ADMIT Nurse Practitioner Acute Care; ATTEND Nurse Practitioner Acute Care
DX: I48.91 Unspecified atrial fibrillation (principal); U07.1 COVID-19; D68.59 Other primary thrombophilia; E10.65 Type 1 diabetes mellitus with hyperglycemia; I10 Essential (primary) hypertension; J44.9 Chronic obstructive pulmonary disease, unspecified; E78.5 Hyperlipidemia, unspecified; F31.9 Bipolar disorder, unspecified; F20.9 Schizophrenia, unspecified; M81.0 Age-related osteoporosis without current pathological fracture; Z78.9 Other specified health status; M19.90 Unspecified osteoarthritis, unspecified site; Z88.8 Allergy status to other drugs, medicaments and biological substances; Z79.51 Long term (current) use of inhaled steroids; Z79.84 Long term (current) use of oral hypoglycemic drugs; Z79.899 Other long term (current) drug therapy; Z79.4 Long term (current) use of insulin; Z87.891 Personal history of nicotine dependence; K21.9 Gastro-esophageal reflux disease without esophagitis; F29 Unspecified psychosis not due to a substance or known physiological condition; Z95.1 Presence of aortocoronary bypass graft; Z86.16 Personal history of COVID-19
CPT/HCPCS: 36415; 71045-TC; 80048-TC; 80061-TC; 82962-TC; 83540-TC; 83735-TC; 83880; 84100-TC; 84443-TC; 84484-TC; 85025-TC; 85378-TC; 86140-TC; 87081-TC; G0378; J1815; J7030